=== PATIENT | male | born 1985 | race Caucasian/White ===

== ENCOUNTER 2020-12-05 13:39 | Emergency (ER) | payer OTHER ==
[~2020-12-05] VITALS: Ht 177.8 cm; Wt 83.9 kg
[2020-12-05] MEDS ORDERED: Bactrim Ds Tab1 EACH PO (14:12)
== END 2020-12-05 14:40 | disposition home or self-care (01) ==
LOC: ER 13:39
DX: L03.011 Cellulitis of right finger (principal); F17.200 Nicotine dependence, unspecified, uncomplicated
CPT/HCPCS: 10060; 11750; 99282; 99282-25